=== PATIENT | male | born 1975 | race Caucasian/White ===

== ENCOUNTER → 2020-09-11 | Outpatient (CLI) ==
--- NOTE | 2020-09-11 07:10 | CT_ITS ---
STUDY: CT MAXILLOFACIAL SINUSES REASON FOR EXAM: Male, 44 years old. Sinusitis, bilateral maxillary pressure, hearing feels and quot;muffled and quot; left side worse. No prior surgery. [place] protocol. RADIATION DOSAGE (If Supplied By Facility): CTDIvol = ( 33.06 ) mGy, DLP = ( 862.77 ) mGycm TECHNIQUE: The patient was scanned in a multi detector CT scanner. High resolution axial imaging was performed without the administration of intravenous contrast material. Sagittal and coronal images were reconstructed. Individualized dose optimization techniques were used for this CT. COMPARISON: None. FINDINGS: FRONTAL SINUSES: Normal aeration, without mucosal inflammatory disease. ETHMOIDAL SINUSES: Mucosal thickening of the ethmoid sinuses more prominent along the posterior aspect of the right ethmoid sinus. MAXILLARY SINUSES: Normal aeration, without mucosal inflammatory disease. SPHENOIDAL SINUSES: Normal aeration, without mucosal inflammatory disease. There is patency of the bilateral maxillary infundibuli with normal uncinate processes, ethmoid bullae, and hiatus semilunaris. Normal bilateral middle turbinates. There is hypertrophy of the right inferior nasal turbinate. Normal midline nasal septum. There is patency of the bilateral nasal airways. The visualized osseous structures are normal. The visualized bilateral orbital contents are normal. CT/Sinus/Facial Bone IMPRESSION: Mucosal thickening of the ethmoid sinuses more prominent on the right side. There is hypertrophy of the right inferior turbinate. Electronically Signed: Frenando Ward, at 10:00 EDT , Service support ,
== END | disposition home or self-care (01) ==
LOC: CT 07:09
PROVIDERS: PCP Student in an Organized Health Care Education/Training Program; Referring Provider Otolaryngology; Visit Provider Otolaryngology
DX: J32.9 Chronic sinusitis, unspecified (principal)
CPT/HCPCS: 70486

== ENCOUNTER 2020-09-30 10:20 | Emergency (ER) | payer OTHER, SELFPAY ==
[2020-09-30 10:23] VITALS: BP 141/84; PULSE 73; RESP 17; TEMP 36.4; O2SAT 98; BMI 32.3
--- NOTE | 2020-09-30 10:35 | MRI_ITS ---
STUDY: MRI CERVICAL SPINE WITHOUT CONTRAST REASON FOR EXAM: Male, 45 years old. hit head this am on garage door, neck pain, n/t hands TECHNIQUE: Standardized fat and water weighted pulse sequences were obtained in the sagittal and axial planes. COMPARISON: None FINDINGS: Normal foramen magnum and brainstem-cervical cord junction. Normal craniovertebral junction. Normal anterior atlantoaxial articulation. Normal odontoid process. Normal cervical lordosis. Normal vertebral bodies and posterior osseous elements. C2-3: Normal endplates. Normal disc height, signal and morphology. Normal central canal and intervertebral neural foramina. C3-4: Normal endplates. Normal disc height, signal and morphology. Normal central canal and intervertebral neural foramina. C4-5: Normal endplates. Normal disc height, signal and morphology. Normal central canal and intervertebral neural foramina. C5-6: Normal endplates. Normal disc height, signal and morphology. Normal central canal and intervertebral neural foramina. C6-7: Normal endplates. Normal disc height, signal and morphology. Normal central canal and intervertebral neural foramina. C7-T1: Normal endplates. Normal disc height, signal and morphology. Normal central canal and intervertebral neural foramina. Normal cervical cord. Normal visualized soft tissue structures. MRI/Spine Cervical (Routine) IMPRESSION: Normal unenhanced MR examination of the cervical spine. Electronically Signed: Dilip Brice MD at 13:41 EST Tel , Service support ,
--- NOTE | 2020-09-30 10:36 | ED.DCSUM_ITS ---
History of Present Illness Chief Complaint: Head Injury Informant: Patient Onset: Hours Mechanism/Context: Blunt Injury Quality of Pain: - - Neck pain followed by numbness upper extremities Location: Upper extremities Current Severity: Mild Maximum Severity: Moderate Worsened by: Occurred after trauma Relieved by: Nothing Associated Symptoms: Parasthesias. Negative for: Inability to ambulate, Loss of consciousness, Amnesia Narrative: Patient is a 45-year-old male with history of depression. He was running between his RV and garage. He forgot the garage door was fci up. He ran into the garage door. He states he went to his knees. He feels sluggish, has mild headache, feels nauseous. He does not report any spinning sensation. He does have intermittent ringing in his ears and had a CT of the sinuses last week. This was ordered by service delivery manager. He denies cardiac respiratory symptoms. He has no other complaints. He is not on anticoagulant. Tetanus Immunization: 5-10 years Prior similar symptoms: No Recent Illness/Hospitalization: Yes - Past Medical History (1) Tinnitus of left ear Status: Acute Past Medical History - Allergies and Home Meds Allergies/Adverse Reactions: Allergies Penicillins Allergy (Verified 09/30/20 10:20) Unknown Primary Care Physician: Js Townsend DO [Primary Care Provider] - Prior records reviewed: Yes Surgical History: no surgical history Lives: Spouse/ Significant Other Smoking Status: Former smoker Alcohol: Occasional - Daily has 1 bourbon Drugs: None Review of Systems General: Denies: Chills, Fever, Malaise, Subjective Eyes: Denies: Visual changes - bilaterally, Blurred Vision - bilaterally, Diplopia ENT: Denies: Bilateral ear pain, Rhinorrhea, Sore throat Cardiovascular: Denies: Chest pain, Palpitations, Heart racing Respiratory: Denies: Dyspnea, Cough, Sputum, Dyspnea on exertion Gastrointestinal: Reports: Nausea. Denies: Abdominal pain, Vomiting, Diarrhea Musculoskeletal: Reports: Neck pain. Denies: Myalgias, Arthralgias, Back pain, Swelling, Extremity Pain Skin: Denies: Rash, Wounds Neurological: Reports: Headache, Parasthesia. Denies: Weakness Psych: Reports: Depression Endocrine: Denies: Polyuria, Polydipsia Hematologic: Denies: Easy bruising, Easy bleeding Physical Exam Vital Signs/Narrative: Vital Signs Temp Pulse Resp BP Pulse Ox 09/30/20 10:23 97.5 F L 73 17 141/84 H 98 General: Well nourished, Well developed Head: Normocephalic, Atraumatic Eyes: Perrl, EOMI ENT: TM's clear, No hemotympanum or drainage, No trauma Neck: Nontender, Full ROM Cardiovascular: Regular rate, Regular rhythm, No murmurs Respiratory: No distress, CTA bilaterally, Chest nontender Abdomen: Soft, Nontender, Nondistended, Normal bowel sounds Back: Nontender Skin: Normal color, No rash Neurological: Alert, Oriented x3, Cranial nerves II-XII grossly intact, Normal Strength, Normal DTR - 2+ biceps, brachialis, triceps, patella and ankle. Reflexes are symmetric. There is no Babinski sign noted. Sensation is altered. Proprioception is normal.. Negative for: Normal Sensation Psychological: Normal affect - Glascow Coma Scale Eye Opening: Spontaneous Motor: Obeys Commands Verbal: Oriented Coma Scale Total: 15 Diagnostic/Tx/Re-eval Impressions Cervical Spine MRI 09/30/20 10:35 IMPRESSION: Normal unenhanced MR examination of the cervical spine. Electronically Signed: Dilip Brice MD at 13:41 EST Tel , Service support , 09/30/20 10:35 MRI Spine [Spine Cervical (Routine)] [MRI] Stat Since there is no evidence of cord contusion will discharge to home. He was discharged with appropriate home-going instructions - Medical Decision Making History of trauma and hyper extension mechanism the followed by bilateral upper extremity numbness will obtain MRI to assess for central cord injury. And by definition has a concussion. Per the [place] CT head rule imaging is not required/indicated. ED Disposition - Plan for ED Patient: Disposition: Home or Assisted Living Diagnosis: Concussion without loss of consciousness, initial encounter, Neck pain, Paresthesia and pain of both upper extremities Instructions: ED Concussion, ED Neck Pain, ED Paraesthesias Referrals: Js Townsend DO [Primary Care Provider] - 1-2 Weeks Additional Instructions: May have trouble with sleeping, getting to sleep or staying asleep. He may have problems with feeling foggy, nausea or trouble concentrating. You may have headaches. All the symptoms may last up to 4 to 6 weeks. 90-95% of patients with concussion have resolution in 4 to 6 weeks.
== END 2020-09-30 14:47 | disposition home or self-care (01) ==
PROVIDERS: Emergency Provider Emergency Medicine; PCP Student in an Organized Health Care Education/Training Program
DX: S06.0X0A Concussion without loss of consciousness, initial encounter (principal); M79.602 Pain in left arm; M79.601 Pain in right arm; R20.2 Paresthesia of skin; M54.2 Cervicalgia; Z87.891 Personal history of nicotine dependence; W22.09XA Striking against other stationary object, initial encounter; Y93.02 Activity, running; Y92.008 Other place in unspecified non-institutional (private) residence as the place of occurrence of the external cause; Y99.8 Other external cause status
CPT/HCPCS: 72141; 99282

== ENCOUNTER → 2021-09-10 10:35 | Outpatient (CLI) | payer OTHER, SELFPAY | PROVIDERS: PCP Student in an Organized Health Care Education/Training Program; Referring Provider Student in an Organized Health Care Education/Training Program; Visit Provider Student in an Organized Health Care Education/Training Program | DX: G47.33 Obstructive sleep apnea (adult) (pediatric) (principal) | CPT/HCPCS: 95806 ==

== ENCOUNTER 2022-02-18 07:21 | Outpatient (CLI) | payer OTHER, SELFPAY ==
--- NOTE | 2022-02-18 07:23 | CT_ITS ---
STUDY: CT MAXILLOFACIAL SINUSES REASON FOR EXAM: Male, 46 years old. SINUSITIS RADIATION DOSAGE (If Supplied By Facility): CTDIvol = ( 33.06 ) mGy, DLP = ( 813.19 ) mGycm TECHNIQUE: The patient was scanned in a multi detector CT scanner. High resolution axial imaging was performed without the administration of intravenous contrast material. Sagittal and coronal images were reconstructed. Individualized dose optimization techniques were used for this CT. COMPARISON: None. FINDINGS: FRONTAL SINUSES: Normal aeration, without mucosal inflammatory disease. ETHMOIDAL SINUSES: Normal aeration, without mucosal inflammatory disease. MAXILLARY SINUSES: Normal aeration, without mucosal inflammatory disease. SPHENOIDAL SINUSES: Normal aeration, without mucosal inflammatory disease. There is patency of the bilateral maxillary infundibuli with normal uncinate processes, ethmoid bullae, and hiatus semilunaris. There is a sada bullosa of the right middle turbinate. Normal bilateral inferior turbinates. There is a left sided nasal septal deviation, but without a significant nasal septal spur. There is patency of the bilateral nasal airways. The visualized osseous structures are normal. The visualized bilateral orbital contents are normal. Sclerosis and mild fluid of the bilateral mastoid air cells. Slight amount of fluid seen in the bilateral middle ear cavities. CT/Sinus/Facial Bone IMPRESSION: 1. No significant paranasal sinus disease. 2. Bilateral mastoid air cell fluid and sclerosis suggesting chronic mastoiditis. 3. Trace fluid in the bilateral middle ear cavities. Electronically Signed: Cristiano Bryson MD ([place]) at 7:44 EDT Reading Location ID and State: [place] , Service support ,
== END 2022-02-18 23:59 | disposition home or self-care (01) ==
LOC: CT 07:21
PROVIDERS: PCP Student in an Organized Health Care Education/Training Program; Visit Provider Otolaryngology
DX: J32.9 Chronic sinusitis, unspecified (principal)
CPT/HCPCS: 70486